=== PATIENT | female | born 1960 | race Caucasian/White ===

== ENCOUNTER 2017-04-26 09:38 | Outpatient (CLI) ==
[2017-04-26 12:46] LABS: HEMATOCRIT 42.1 % (37.0-47.0); HEMOGLOBIN 13.8 g/dl (12.0-16.0); MEAN CORPUSCULAR HEMOGLOBIN 30.5 pg (27.0-31.0); MEAN CORPUSCULAR HGB CONC 32.8 (31.8-35.4); MEAN CORPUSCULAR VOLUME 92.9 fl (81.0-99.0); RED BLOOD COUNT 4.53 10^6/ul (4.20-5.40); WHITE BLOOD COUNT 6.03 K/ul (4.6-10.2)
[2017-04-26 13:17] LABS: ALBUMIN/GLOBULIN RATIO 1.05; ANION GAP 15.9; BILIRUBIN,TOTAL 0.68 mg/dL (0.00-1.20); BUN/CREATININE RATIO 23.95; CALCIUM 9.6 mg/dL (8.2-10.2); CHOL/HDL RATIO 3.4 (4.5-5.5); CREATININE 0.96 mg/dL (0.60-1.30); POTASSIUM 3.9 mmol/L (3.5-5.10); TOTAL PROTEIN 7.8 g/dL (6.4-8.2)
== END 2017-04-26 09:39 | disposition home or self-care (01) ==
LOC: LAB 09:38
PROVIDERS: ATTEND Nurse Practitioner Family
DX: D69.3 Immune thrombocytopenic purpura (principal); E03.9 Hypothyroidism, unspecified; I10 Essential (primary) hypertension
CPT/HCPCS: 36415; 80053; 80061; 84443; 85027